=== PATIENT | female | born 1950 | race Caucasian/White ===

== ENCOUNTER → 2017-12-14 | Emergency (ER) | payer OTHER, MEDICARE ==
[~2017-12-14] VITALS: Ht 165.1 cm; Wt 72.0 kg
[~2017-12-14] MED LIST: CEPH-572 PO; LIDOcaine 1% 30ml preserv. free vial IJ ONE; LIDOcaine 1% 30ml preserv. free vial IJ STA; TETanus/Pertussis (Acell)/Diphther VAC/PF (Tdap-Adult) 0.5ml syringe IM ONE
[2017-12-14 13:28] VITALS: BP 149/70
== END | disposition home or self-care (01) ==
LOC: ER 12:44
DX: S61.211A Laceration without foreign body of left index finger without damage to nail, initial encounter (principal); G89.29 Other chronic pain; Z79.2 Long term (current) use of antibiotics; W26.0XXA Contact with knife, initial encounter; Y93.89 Activity, other specified; Y92.89 Other specified places as the place of occurrence of the external cause; Y99.8 Other external cause status
CPT/HCPCS: 12001; 90471; 90715; 99283; A6222; A6449; J3490

== ENCOUNTER 2025-04-22 12:35 | Emergency (ER) | payer MEDICARE ==
[~2025-04-22] VITALS: Ht 165.1 cm; Wt 58.1 kg
[~2025-04-22 12:35] MED LIST changes: +ATOR20TA66 PO; -CEPH-572 PO; +HYDR-3965 PO; +HYDR25TA90 PO; +LEVO100T PO; -LIDOcaine 1% 30ml preserv. free vial IJ ONE; -LIDOcaine 1% 30ml preserv. free vial IJ STA; +NOR5T PO; +PANT40TA54 PO; -TETanus/Pertussis (Acell)/Diphther VAC/PF (Tdap-Adult) 0.5ml syringe IM ONE
--- NOTE | 2025-04-22 13:18 | Physician Documentation ---
History of Present Illness Chief Complaint: Abdominal Pain Stated Complaint: FLANK PAIN HPI This is a 75-year-old female with history of bowel resection due to cancer mass presents with right-sided abdominal pain, patient reports that she had contacted her surgeon and primary care who directed her to the emergency department. 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 Patient is scheduled for chemotherapy on Saturday. She does have a port in place. There was no reported nausea or vomiting. Medication Reconciliation Allergies: Coded Allergies: No Known Allergies (Unverified , 04/22/25) Scheduled Amlodipine Besylate (Amlodipine Besylate), 5 MG PO DAILY Atorvastatin Calcium (LIPITOR tablet), 40 MG PO DAILY, (Reported) Hydralazine Hcl* (Apresoline*), 25 MG PO Q12H Levothyroxine Sodium (Synthroid), 1 TAB PO DAILY, (Reported) Pantoprazole Sodium (Pantoprazole Sodium), 40 MG PO BKF Scheduled PRN Hydrocodone Bit/Acetaminophen 5/325 MG ([place] 5/325 MG), 2 TAB PO HS PRN for pain, (Reported) Past Medical History Past Medical History: *ENDOCRINE*, Chronic Pain, *CANCER* (Bowel cancer) Past Surgical History: noncontributory Patient History: Patient reports no known family medical history. Drug Use: none Lives with: Spouse Lives In: Home Review of Systems All Other Systems at this time: Reviewed and Negative ROS As stated above in the HPI, otherwise all systems are reviewed and negative. Constitutional: Denies: fever Gastrointestinal: Reports: abdominal pain, nausea; Denies: vomiting Physical Exam Vital Signs: RN Vital Signs have been reviewed: Yes, Temperature: 97.3, Source: Temporal, Heart Rate: 94, Respiratory Rate: 18, BP: 156/68, Pulse Oximetry: 98, Weight: 58.100 Oxygen Flow Rate: 0 Physical Exam VITALS: Reviewed and as above. GENERAL: Alert, nontoxic appearing, no apparent distress. HEENT: RESPIRATORY: No increased work of breathing, no respiratory distress, speaking in full clear sentences CHEST: CV: BACK: GI: MUSCULOSKELETAL: SKIN: NEURO: PSYCH: General Appearance: alert, WD/WN EENT: PERRL/EOMI Neck: normal inspection Respiratory: no respiratory distress Chest: no accessory muscle use Cardiovascular: normal peripheral pulses Gastrointestinal: tenderness (Tenderness right lower quadrant) Back: normal inspection Extremities: normal range of motion Neurologic: oriented x4 Psychiatric: normal mood/affect Skin: normal color Lymphatic: no adenopathy Progress Results/Orders Results/Orders Vital Signs 04/22/25 13:05 Temp 97.3 Pulse 94 Resp 18 B/P (MAP) 156/68 Pulse Ox 98 O2 Flow Rate 0 Medical Decision Making Additional information obtaine: old records Findings Patient is hemodynamically stable. MSE performed in triage and patient returned to ED lobby by nursing staff to await available ED room. All labs reviewed with the patient. No transaminitis noted. CT imaging consistent with progressive metastasis to the liver. Remainder of CT imaging unremarkable. Discussed these findings with the patient we will follow up with the oncologist and her primary care physician tomorrow. She understands to keep her scheduled chemotherapy appointment for Saturday. Discharged in the emergency department hemodynamically stable with all questions and concerns answered. Differential Dx:Considerations: Appendicitis, Bowel obstruction, Diverticular disease, Gastroenteritis, GI hemorrhage, Inflammatory BD, Pancreatitis, Urinary obstruction, Urinary tract infection, Urolithiasis, Other (Cancers meds) Departure Disposition: HOME / SELF CARE / HOMELESS Impression: Primary Impression: Abdominal pain Qualified Codes: R10.11 - Right upper quadrant pain Additional Impression: Metastasis to liver Condition: Stable Additional Instructions: Please make a follow up appointment with your oncologist regarding today CT imaging and keep your scheduled chemotherapy appointment on Saturday. Thank you for visiting emergency department of [facility]. Referrals: NO PRIMARY CARE PROVIDER (PCP) Education Educated: Patient Educated regarding: diagnosis, treatment, prognosis, need for follow up (Keep all scheduled Oncology appointments) Signature Scribe Signature: . Attestation: . FRANCESCO NORMAN Apr 22, 2025 13:18 MARCE HARDWICK PAC Apr 22, 2025 17:04
[2025-04-22 15:00] LABS: MEAN PLATELET VOLUME 7.2 FL (7.4-10.4); RED CELL DISTRIBUTION WIDTH 14.7 % (11.5-14.5)
[2025-04-22 15:06] LABS: LEUKOCYTE ESTERASE ,URINE NEGATIVE (Neg); NITRITES, URINE NEGATIVE (Neg); OCCULT BLOOD,URINE TRACE-INTACT (Neg)
[2025-04-22 15:15] LABS: UA COLLECTION TYPE CLN CATCH MIDSTREAM
[2025-04-22 15:19] LABS: MUCUS STRANDS MODERATE /LPF (Neg); RENAL CELLS, URINE FEW /HPF; SQUAMOUS EPITHELIAL CELL,UR MANY /LPF (FEW)
[2025-04-22 15:23] LABS: CREATININE 0.98 MG/DL (0.40-0.90); TOTAL CARBON DIOXIDE 29.1 MMOL/L (24-32); eCRCL 47 ML/MIN; eGFR 56 ML/MIN
[2025-04-22] MEDS ORDERED: iohexol 300mg/ml 100ml inj. ONE (15:51)
--- NOTE | 2025-04-22 16:43 | RADIOLOGY REPORT ---
EXAM: CT CT ABDOMEN PELVIS W/ IV CONTRAST HISTORY: hx of colon cancer .post op TECHNIQUE: Volumetric multidetector CT images of the abdomen and pelvis were obtained after the administration of intravenous contrast. All CT scans at this facility use dose modulation, iterative reconstruction, and/or weight based dosing when appropriate to reduce radiation dose to as low as reasonably achievable. COMPARISON: CT CT ABDOMEN PELVIS W/ RECTAL CON CONTRAST on DOS: 02/16/25 FINDINGS: [LOWER CHEST]: The partially visualized lung bases are clear without a pleural effusion. [LIVER]: Upon comparison with the prior examination, multiple hypoattenuating lesions significantly concerning for metastatic disease. Dominant lesion in hepatic segment 4A measures 4.5 cm. Characteristic hepatic segment 5 lesion measures 4.5 cm. [GALLBLADDER AND BILIARY TREE]: No cholelithiasis. [SPLEEN]: Unremarkable. [PANCREAS]: Unremarkable. [ADRENAL GLANDS]: Unremarkable [KIDNEYS]: No hydronephrosis. No nephroureterolithiasis. No suspicious focal lesion. [BLADDER]: Unremarkable for the degree distention. [REPRODUCTIVE ORGANS]: Unremarkable. [BOWEL/MESENTERY]: Stomach is normal. No CT evidence of bowel obstruction. postsurgical changes in the right sacrum. [id number] stool burden. [ASCITES]: Absent [LYMPHADENOPATHY]: No pathologically enlarged lymph nodes by CT size criteria [VASCULATURE]: No aneurysmal dilatation. [ABDOMINAL WALL]: Postsurgical changes along the lower midline of the abdomen [MUSCULOSKELETAL]: No acute fracture or aggressive focal osseous lesion. Multifocal degenerative change of the visualized spine. IMPRESSION: 1. Significant progression of liver metastatic disease. No measurable retroperitoneal lymphadenopathy.
[2025-04-22 17:12] VITALS: BP 120/65; PULSE 78; RESP 16; TEMP 97.3; O2SAT 98
== END 2025-04-22 17:15 | disposition home or self-care (01) ==
LOC: ER 12:36
DX: C78.7 Secondary malignant neoplasm of liver and intrahepatic bile duct (principal); R10.11 Right upper quadrant pain; G89.29 Other chronic pain; Z90.49 Acquired absence of other specified parts of digestive tract; Z95.828 Presence of other vascular implants and grafts; Z79.899 Other long term (current) drug therapy
CPT/HCPCS: 36415; 74177; 80053; 81001; 83690; 85025; 99285; Q9967